=== PATIENT | male | born 1980 | race Two or more races ===

== ENCOUNTER → 2023-05-02 | Outpatient (CLI) | payer OTHER | END | disposition home or self-care (01) | LOC: MSR 09:00 | PROVIDERS: ATTEND Chiropractor | DX: M20.12 Hallux valgus (acquired), left foot (principal); M20.11 Hallux valgus (acquired), right foot; M13.80 Other specified arthritis, unspecified site; R07.9 Chest pain, unspecified; E55.9 Vitamin D deficiency, unspecified | CPT/HCPCS: 71046; 82306 ==